=== PATIENT | female | born 2000 | race Hispanic/Latino ===

== ENCOUNTER 2021-04-09 02:40 | Emergency (ER) | payer SELFPAY ==
[~2021-04-09 02:40] MED LIST: NA CHLORIDE 0.9% 1,000 ML ONE; RSI MEDICATION KIT IV ONE
[2021-04-09] MEDS ORDERED: SUCCINYLCHOLINE 20 MG/ML (10 ML) IV ONE (02:41)
[2021-04-09] MEDS ORDERED: NALOXONE HCL 2 MG/2 ML VIAL ONE (02:43)
[2021-04-09 02:51] LABS: Urine Blood Negative (Negative); Urine Glucose Negative (Negative); Urine Protein 2+ (Negative); Urine Specific Gravity 1.025 (1.005-1.030)
[2021-04-09 03:13] LABS: Urine Specific Gravity/Preg 1.025 (1.005-1.030)
[2021-04-09 03:26] LABS: Protime INR 1.05
[2021-04-09 03:30] LABS: Absolute Lymphocytes (CBC) 4.1 K/uL (0.7-4.9); Hematocrit 33.8 % (36.0-45.0); Lymphocytes % 31.3 % (15.3-44.8); MPV 9.2 fL (7.6-11.3)
[2021-04-09 03:40] LABS: Barbiturates NEGATIVE (NEGATIVE); Benzodiazepines POSITIVE (NEGATIVE); Cocaine POSITIVE (NEGATIVE); METHAMPHETAM NEGATIVE (NEGATIVE); Methadone NEGATIVE (NEGATIVE); Opiates NEGATIVE (NEGATIVE); Phencyclidine NEGATIVE (NEGATIVE); THC Cannibis NEGATIVE (NEGATIVE)
[2021-04-09 03:40] LABS: ALT/SGPT 21 U/L (12-78); AST/SGOT 23 U/L (15-37); Albumin 3.9 g/dL (3.4-5.0); Alkaline Phosphatase 101 U/L (45-117); BUN Blood Urea Nitrogen 18 mg/dL (7-18); Bicarbonate 27 mmol/L (21-32); Bilirubin Direct 0.2 mg/dL (0-0.2); Bilirubin Total 0.9 mg/dL (0.2-1.0); Glucose Level 222 mg/dL (74-106); Protein, Total 7.7 g/dL (6.4-8.2); Sodium Level 137 mmol/L (136-145)
[2021-04-09 03:43] LABS: Potassium 2.9 mmol/L (3.5-5.1)
--- NOTE | 2021-04-09 03:59 | EDPHYS ---
Physician Documentation [facility] Name: Obed Leigh Age: 20 yrs Sex: Female : 2000 Arrival Date: 04/09/2021 Time: 02:40 Bed 3 Private MD: ED Physician Tc King HPI: 04/09 02:44 This 23 yrs old Female presents to ER via Unassigned with complaints of unresponsive. rn 02:44 The patient presents with decreased responsiveness. Onset: The symptoms/episode rn began/occurred at an unknown time. Possible causes: unknown. Associated signs and symptoms: Pertinent positives:. Unable to obtain HPI due to obtunded state. 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 Patient was not responsive, but had a pulse. . 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 - Social history:: Smoking status: unknown. - Unable to obtain history due to: obtunded state. ROS: 02:44 Unable to obtain ROS due to obtunded state. rn Exam: 02:44 Constitutional: Thin girl, GCS 3 with a palpable pulse Head/Face: Normocephalic, rn atraumatic. Eyes: Smeared eyeshadow. ENT: dry MM, no pill fragments, + perioral cyanosis Cardiovascular: Regular rate and rhythm. No pulse deficits. Respiratory: + bradypnea Abdomen/GI: soft, non-tender, non-distended Skin: cool to the touch MS/ Extremity: Pulses equal, no cyanosis. Neurovascular intact. Full, normal range of motion. Equal circumference. Neuro: GCS 3 03:38 ECG was reviewed by the Attending Physician. rn Vital Signs: 02:34 BP 107 / 62; Pulse 106; Pulse Ox 22% on R/A; as6 03:04 BP 128 / 80; Pulse 103; Resp 22 S; Pulse Ox 100% on R/A; as6 03:43 BP 118 / 74; Pulse 109; Resp 19 S; Pulse Ox 99% on R/A; as6 MDM: 02:43 Patient medically screened. rn 02:44 ED course: Pt woke up immediately after narcan administration, sitting up, crying, rn asking for her mom. Will continue to monitor if she needs more narcan.. 03:00 ED course: Nursing contacted patient's mother, who is going to send a family member up rn here. She is also working on locating patient's child. Patient cannot recall where she left her child. She states she remembers being at an apartment in [place], but she cannot recall address. . 03:40 ED course: Pt told nurse that she took percocet. rn 03:55 Differential Diagnosis: electrolyte abnormality, hypoglycemia, overdose, volume rn depletion. Differential Diagnosis: alcohol intoxication. Data reviewed: vital signs, nurses notes, lab test result(s), EKG, and as a result, I will continue to observe the patient. Refusal of service: The patient/guardian displays adequate decision making capability and despite a detailed discussion of alternatives, benefits, risks, and consequences refuses: to continue to be observed.. ED course: Pt refuses any further care, has been wide awake since narcan administered, stable vitals, has been on phone calling for a ride. States friend is picking her up. Told her we had to administer narcan and recommend close observation in ER. Pt pulled out her own IV and is demanding to leave. . 03:57 Counseling: I had a detailed discussion with the patient and/or guardian regarding: the rn historical points, exam findings, and any diagnostic results supporting the discharge/admit diagnosis, lab results. Response to treatment: the patient's symptoms have markedly improved after treatment, and as a result, I will. 04/09 02:44 Order name: Acetaminophen rn 04/09 02:44 Order name: Basic Metabolic Panel; Complete Time: 03:46 rn 04/09 02:44 Order name: CBC with Diff; Complete Time: 03:39 rn 04/09 02:44 Order name: ETOH Level; Complete Time: 03:39 rn 04/09 02:44 Order name: Hepatic Function; Complete Time: 03:46 rn 04/09 02:44 Order name: PT-INR; Complete Time: 03:39 rn 04/09 02:44 Order name: Ptt, Activated; Complete Time: 03:39 rn 04/09 02:44 Order name: Salicylate; Complete Time: 03:46 rn 04/09 02:44 Order name: Urine Drug Screen; Complete Time: 03:46 rn 04/09 02:44 Order name: Acetaminophen Level; Complete Time: 03:46 EDMS 04/09 02:50 Order name: Urine Dipstick-Ancillary; Complete Time: 03:39 EDMS 04/09 02:52 Order name: Urine --Ancillary (enter results) mw2 04/09 02:53 Order name: Urine --Ancillary; Complete Time: 03:39 EDMS 04/09 02:55 Order name: Glucose, Ancillary Testing; Complete Time: 03:39 EDMS 04/09 02:44 Order name: Glucose Level; Complete Time: 02:50 rn 04/09 02:44 Order name: EKG; Complete Time: 02:45 rn 04/09 02:44 Order name: EKG - Nurse/Tech; Complete Time: 03:35 rn 04/09 02:44 Order name: IV Saline Lock; Complete Time: 02:49 rn 04/09 02:44 Order name: Labs collected and sent; Complete Time: 02:49 rn 04/09 02:44 Order name: Urine Dipstick-Ancillary (obtain specimen); Complete Time: 02:49 rn 04/09 02:44 Order name: Urine Test (obtain specimen); Complete Time: 02:49 rn EC:38 Rate is 93 beats/min. Rhythm is regular. QRS [place] is Normal. NE interval is normal. QRS rn interval is normal. QT interval is normal. No Q waves. T waves are Normal. No ST changes noted. Clinical impression: Normal ECG. Interpreted by me. Reviewed by me. Administered Medications: 02:40 Drug: NARcan (naloxone) 2 mg Route: IVP; Site: left antecubital; as6 04:13 Follow up: Response: No adverse reaction as6 02:40 Drug: NARcan (naloxone) 2 mg Route: IVP; Site: left antecubital; as6 04:13 Follow up: Response: No adverse reaction as6 Disposition: 03:59 Critical Care:. 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 Total time: 35 minutes rn Signatures: Dispatcher [employer] EDTc Rodriguez MD MD rn Slawson, Ashby, RN RN as6
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
[2021-04-09 04:55] VITALS: BP 118/74; O2SAT 99
[2021-04-09] MEDS ORDERED: ETOMIDATE 20 MG/10 ML VIAL IV ONE (09:52)
== END 2021-04-09 04:25 | disposition left against medical advice (07) ==
LOC: ER 02:40 → EDBD 02:40 → ER 04:25
DX: T40.5X1A Poisoning by cocaine, accidental (unintentional), initial encounter (principal); T42.4X1A Poisoning by benzodiazepines, accidental (unintentional), initial encounter
CPT/HCPCS: 36415; 51702; 80048; 80076; 80307; 80320; 80329; 81003; 81025; 82947; 85025; 85610; 85730; 96374; 99291; J0330; J2310; J7030